=== PATIENT | male | born 1955 | race Hispanic/Latino ===

== ENCOUNTER 2023-06-22 06:25 | Day surgery (SDC) | payer OTHER ==
[2023-06-22] VITALS (10 sets, daily range): BP systolic 104–139; BP diastolic 70–96; PULSE 69–86; RESP 15–18
[~2023-06-22] VITALS: Ht 177.8 cm; Wt 109.8 kg
[~2023-06-22 06:25] MED LIST: ALBU10.7 IH; ASCO100031 PO; AZIT250T9 PO; CARV6.25 PO; CHOL100040 PO; FAMO40TA7 PO; OLME-9 PO; PANT40TA54 PO; ZINC50TA64 PO
[2023-06-22] MEDS ORDERED: PROPOFOL 10 MG/ML 20ML VIAL IV ONE ×2 (07:07→07:08)
[2023-06-22] MEDS ORDERED: LIDOCAINE PF 100MG/5ML (2%) SYRINGE 5ML ONE (07:08)
[2023-06-22] MEDS ORDERED: GLYCOPYRROLATE 0.2 MG/ML 5 ML VIAL ONE (07:09)
[2023-06-22] MEDS ORDERED: ATROPINE 1MG SYG IVP ONE (07:10)
== END 2023-06-22 09:55 | disposition home or self-care (01) ==
LOC: ENDO 06:25 → DAH 06:25 → ENDO 09:55
PROVIDERS: ATTEND Surgery
DX: K30 Functional dyspepsia (principal); K31.84 Gastroparesis; K21.9 Gastro-esophageal reflux disease without esophagitis; K29.50 Unspecified chronic gastritis without bleeding; K31.A0 Gastric intestinal metaplasia, unspecified; K31.5 Obstruction of duodenum; K22.89 Other specified disease of esophagus; K76.0 Fatty (change of) liver, not elsewhere classified; I10 Essential (primary) hypertension; E78.5 Hyperlipidemia, unspecified; E66.01 Morbid (severe) obesity due to excess calories; Z79.01 Long term (current) use of anticoagulants; Z79.899 Other long term (current) drug therapy; Z85.09 Personal history of malignant neoplasm of other digestive organs; Z68.34 Body mass index [BMI] 34.0-34.9, adult
CPT/HCPCS: 71045; 43239; J2001; J0461; J2704 ×2; J3490; A4215 ×3; A4223; A7002; A4222; A4221; A4663; J7030; A4606